=== PATIENT | male | born 1930 | race Caucasian/White ===

== ENCOUNTER 2021-01-19 16:16 | Emergency (ER) | payer MEDICAID ==
[~2021-01-19] VITALS: Ht 170.2 cm; Wt 102.5 kg
--- NOTE | 2021-01-19 16:56 | NUR ---
BIBFAMILY TO ER BED 7. AAOX4. NOT IN RESP DISTRESS. AMBULATORY. CAME IN FOR FEELING WEAK AND NOT WELL ACCORDING TO THE FAMILY SINCE SUNDAY. PT WAS UNABLE TO URINATED AND WAS NOTED WEAK. DAUGHTER ALSO REPORTS THAT THE PATIENT HAS BEEN DISORIENTED RECENTLY. NO NEURO DEFICIT NOTED. MD WAS AT THE BEDSIDE FOR EVAL. ORDERS RECEIVED, NOTED AND CARRIED OUT.
[2021-01-19] MEDS ORDERED: IV NS 0.9% 1,000 ML BAG IV ONE ×2 (17:00→18:00)
--- NOTE | 2021-01-19 17:05 | NUR ---
MOVE SHEET SUBMITTED AND CALLED FOR BED.
[2021-01-19 17:06] LABS: BASOPHILS # (AUTO) 0.1 K/uL (0.0-0.2); BASOPHILS % (AUTO) 0.8 % (0.0-2.0); EOSINOPHILS % (AUTO) 1.6 % (0.0-6.0); HEMATOCRIT 43 % (39-51); HEMOGLOBIN 14.1 g/dL (13.5-17.5); LYMPHOCYTES # (AUTO) 1.5 K/uL (0.8-4.8); MEAN CORPUSCULAR HGB CONC 33 g/dl (31.0-36.0); MEAN CORPUSCULAR VOLUME 101 fL (80-96); MONOCYTES # (AUTO) 0.8 K/uL (0.1-1.30); MONOCYTES % (AUTO) 9.9 % (2.0-12.0); NEUTROPHILS # (AUTO) 5.2 K/uL (1.8-8.9); NEUTROPHILS % (AUTO) 67.7 % (43.0-81.0); PLATELET COUNT (AUTO) 296 K/uL (150-450); RED BLOOD CELL COUNT(AUTO) 4.23 MIL/uL (4.5-6.0); WHITE BLOOD COUNT (AUTO) 7.6 K/uL (4.3-11.0)
[2021-01-19] MEDS ORDERED: LIDOCAINE 2% JEL UROJET 10 ML MM ONE ×2 (17:17→17:30)
--- NOTE | 2021-01-19 17:20 | NUR ---
COVID SWAB DONE AND SENT TO THE LAB
[2021-01-19 17:40] LABS: BILIRUBIN,URINE LARGE (NEGATIVE); COLOR,URINE DARK YELLOW (YELLOW); LEUKOCYTE ESTERASE ,URINE Negative (NEGATIVE); NITRITE, URINE Negative (NEGATIVE); PROTEIN,URINE 30 mg/dl (NEGATIVE); UGLUCOSE Negative (NEGATIVE)
[2021-01-19 17:51] LABS: BACTERIA,URINE Few /HPF (None Seen); SQUAMOUS EPITHELIAL CELL,UR 0-2 /HPF (None Seen); WBC,URINE 0-2 /HPF (0-3)
[2021-01-19] MEDS ORDERED: CEFEPIME 1 GM in IV D5W 50 ML IV ONE (18:00)
[2021-01-19 18:01] LABS: ALANINE AMINOTRANSFERASE 273 U/L (12-78); ALBUMIN 2.5 g/dL (3.4-5.0); ALKALINE PHOSPHATASE 422 U/L (46-116); ASPARTATE AMINOTRANSFERASE 197 U/L (15-37); BILIRUBIN,DIRECT 2.1 mg/dL (0.0-0.2); BILIRUBIN,TOTAL 2.6 mg/dL (0.2-1.0); CALCIUM, SERUM 8.1 mg/dL (8.5-10.1); CARBON DIOXIDE 25 mmol/L (21-32); CHLORIDE 102 mmol/L (98-107); CREATININE 1.4 mg/dL (0.6-1.3); GLUCOSE 248 mg/dL (74-106); POTASSIUM 3.6 mmol/L (3.5-5.1); SODIUM SERUM 138 mmol/L (136-145); TOTAL PROTEIN, SERUM 6.9 g/dL (6.4-8.2); UREA NITROGEN, BLOOD 27 mg/dL (7-18)
--- NOTE | 2021-01-19 18:21 | NUR ---
URINE OUTPUT 600 ML
--- NOTE | 2021-01-19 18:36 | NUR ---
[facility] CALLED [phone] FAX CLINICALS TO [phone]
--- NOTE | 2021-01-19 18:58 | NUR ---
CREA 1.4. PER DR ZAZUETA OK TO DO CT WITH CONTRAST
[2021-01-19] MEDS ORDERED: IOHEXOL-300 100 ML VIAL IV ONE (19:01)
[2021-01-19] MEDS ORDERED: IV NS 0.9% 250 ML IV ONE (19:01)
--- NOTE | 2021-01-19 19:06 | NUR ---
pt to [place] on [facility]
--- NOTE | 2021-01-19 19:23 | NUR ---
FAXED BUT WAITING FOR CT [phone]
--- NOTE | 2021-01-19 20:31 | NUR ---
CALLED [facility] [phone] THEY HAVE ALL DOCS AND ARE CALLING KAY ZAYAS.
--- NOTE | 2021-01-19 20:52 | NUR ---
shoshana [phone]
--- NOTE | 2021-01-19 21:18 | NUR ---
CALLED AFTER HOURS [phone] CONECTING TO KENDRA LOERA. [facility] WILL BE CONTACTING US CELI.
--- NOTE | 2021-01-19 21:28 | NUR ---
[facility] CALLED BACK AND WILL CALL BACK WITH
--- NOTE | 2021-01-19 21:29 | NUR ---
CALLED HANS ASHLEY.
--- NOTE | 2021-01-19 21:32 | NUR ---
DR. GONZALEZ SPEAKING WITH DR. ZAZUETA.
--- NOTE | 2021-01-19 22:00 | NUR ---
CALLED DR. MAXWELL, SPEAKING WITH DR. ZAZUETA.
--- NOTE | 2021-01-19 22:07 | NUR ---
CALLED [facility] [phone] PT ACCEPTED TO [facility] ROOM 1015-A PLEASE CALL [phone] FOR REPORT WILL CALL WITH ETA OF TRANSPORT
--- NOTE | 2021-01-19 22:16 | NUR ---
[facility] CALLED TRANSPORT IS WITH [facility] ETA IS [phone]
--- NOTE | 2021-01-19 22:17 | NUR ---
DR. ELLIS IS THE ACCEPTING DOCTOR.
--- NOTE | 2021-01-19 23:47 | NUR ---
REPORT GIVEN TO CLARISSA AL FOR SACHA
--- NOTE | 2021-01-19 23:49 | NUR ---
REPORT GIVEN TO CLARISSA AL FOR SACHA AT THE [facility]
--- NOTE | 2021-01-20 00:17 | NUR ---
CALLED [facility] WITH NEW ETA 15 MINS.
[2021-01-20 00:45] VITALS: BP 148/80
--- NOTE | 2021-01-20 00:45 | NUR ---
Patient Tranfers to outside Facility, Physician:DR ELLIS, REPORT GIVEN TO VIDA PACE, PT TRANSFERRED TO [facility]IA [facility] IN STABLE CONDITION, ACCOMPANIED BY VIDA PACE AND ANOTHER EMT PERSONNEL, DAUGHTER AND PRESENT.
== END 2021-01-20 00:45 | disposition short-term general hospital (02) ==
LOC: ER 16:28
DX: A41.9 Sepsis, unspecified organism (principal); K81.9 Cholecystitis, unspecified; I10 Essential (primary) hypertension; R94.31 Abnormal electrocardiogram [ECG] [EKG]; N13.30 Unspecified hydronephrosis; N28.1 Cyst of kidney, acquired; Z20.822 Contact with and (suspected) exposure to COVID-19
CPT/HCPCS: 36415; 51702; 71045; 74177; 76705; 80048; 80076; 81001; 83605 ×2; 84145; 84484; 85025; 85730; 87081; 87086; 87426; 93005; 96361; 96365; 99291; C9803; J0692; J3490; J7030 ×2; J7050; J7060; Q9967

== ENCOUNTER 2021-12-16 06:36 | Emergency (ER) | payer MEDICAID ==
[~2021-12-16] VITALS: Ht 167.6 cm; Wt 99.3 kg
--- NOTE | 2021-12-16 06:50 | NUR ---
PATIENT [id number] FROM HOME C/O LOW BS THIS AM. 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 PATIENT A/O X 3, RR EVEN AND UNLABORED, NO SOB NOTED. PATIENT TAKEN TO ER BED 09. PATIENT CONNECTED TO MONITORS.
--- NOTE | 2021-12-16 07:00 | NUR ---
LAB AT BEDSIDE FOR BLOOD DRAW
--- NOTE | 2021-12-16 07:08 | NUR ---
pt unable to provide urine at this time
[2021-12-16 07:11] LABS: BASOPHILS % (AUTO) 0.5 % (0.0-2.0); EOSINOPHILS % (AUTO) 0.1 % (0.0-6.0); HEMATOCRIT 44 % (39-51); HEMOGLOBIN 14.5 g/dL (13.5-17.5); LYMPHOCYTES # (AUTO) 1.4 K/uL (0.8-4.8); LYMPHOCYTES % (AUTO) 19.5 % (20.0-44.0); MEAN CORPUSCULAR HGB CONC 33 g/dl (31.0-36.0); MEAN CORPUSCULAR VOLUME 97 fL (80-96); MONOCYTES # (AUTO) 0.7 K/uL (0.1-1.30); MONOCYTES % (AUTO) 9.5 % (2.0-12.0); NEUTROPHILS # (AUTO) 5.2 K/uL (1.8-8.9); NEUTROPHILS % (AUTO) 70.4 % (43.0-81.0); PLATELET COUNT (AUTO) 250 K/uL (150-450); RED BLOOD CELL COUNT(AUTO) 4.52 MIL/uL (4.5-6.0); WHITE BLOOD COUNT (AUTO) 7.4 K/uL (4.3-11.0)
[2021-12-16] MEDS ORDERED: WARF-58 PO (07:12)
[2021-12-16] MEDS ORDERED: ROPI0.5T4 PO (07:12)
[2021-12-16] MEDS ORDERED: ASPI-1420 PO (07:12)
[2021-12-16] MEDS ORDERED: METO25TA4 PO (07:12)
[2021-12-16] MEDS ORDERED: GLYB1TAB41 PO (07:12)
[2021-12-16] MEDS ORDERED: BENA1TAB16 PO (07:12)
[2021-12-16] MEDS ORDERED: MELO-107 PO (07:12)
[2021-12-16] MEDS ORDERED: MONT10TA22 PO (07:12)
[2021-12-16] MEDS ORDERED: TAMS-12 PO (07:12)
[2021-12-16] MEDS ORDERED: ATOR20TA PO (07:12)
[2021-12-16] MEDS ORDERED: ISOS60TA72 PO (07:12)
[2021-12-16] MEDS ORDERED: FLUT16SP BNOSTRILS (07:12)
--- NOTE | 2021-12-16 07:15 | NUR ---
RECEVED PT FROM [facility] RESPIRATION SPONT AND EASY skin warm and dry to touch
[2021-12-16 07:27] LABS: ACETAMINOPHEN < 10 ug/ml (10-30); ALCOHOL, BLOOD < 3 mg/dL (0-0)
[2021-12-16 07:38] LABS: THYROID STIMULATING HORMONE 0.681 uIU/mL (0.358-3.74)
[2021-12-16 07:49] LABS: CARBON DIOXIDE 30 mmol/L (21-32); CHLORIDE 103 mmol/L (98-107); CREATININE 1.3 mg/dL (0.6-1.3); GLUCOSE 90 mg/dL (74-106); POTASSIUM 4.1 mmol/L (3.5-5.1); SODIUM SERUM 142 mmol/L (136-145); UREA NITROGEN, BLOOD 13 mg/dL (7-18)
--- NOTE | 2021-12-16 08:21 | NUR ---
CYNTHIA [phone] PT WILL BE GOING TO [facility] PLEASE FAX COVID WHEN AVAILABLE TO [phone]
--- NOTE | 2021-12-16 09:00 | NUR ---
coved swab done and send to lab
--- NOTE | 2021-12-16 09:00 | NUR ---
ll no n/v breackfest obtened eat w
--- NOTE | 2021-12-16 09:05 | NUR ---
covid antigen swab done and sent to the lab
--- NOTE | 2021-12-16 10:15 | NUR ---
transfer pt to room 8 dineses sob
--- NOTE | 2021-12-16 10:20 | NUR ---
FAXED CLINICALS TO [facility] [phone]
--- NOTE | 2021-12-16 11:37 | NUR ---
WATING FOR DISPO AND CLEARNESS FROM INSURENS
--- NOTE | 2021-12-16 11:38 | NUR ---
AUREA MARIE [phone] ROOM AT [facility] PT ACCEPTED UNDER DR. CHUNG.
[2021-12-16] MEDS ORDERED: DEXTROSE 50%-WATER 50 ML DISP.SYRIN IVP ONE (12:00)
[2021-12-16 12:52] LABS: BILIRUBIN,URINE NEGATIVE (NEGATIVE); COLOR,URINE YELLOW (YELLOW); LEUKOCYTE ESTERASE ,URINE NEGATIVE (NEGATIVE); NITRITE, URINE NEGATIVE (NEGATIVE); PH,URINE 5.5 (5.0-8.0); PROTEIN,URINE NEGATIVE (NEGATIVE); UGLUCOSE NEGATIVE (NEGATIVE); UROBILINOGEN,URINE 0.2 EU/dL (0.2)
--- NOTE | 2021-12-16 13:00 | NUR ---
DR. LIEN MCKEON spook with [facility] AT BED ABOUT PLAN OF CARE AND MONITERING BS Q1 HR FOR 2-3 HR
[2021-12-16 13:30] LABS: BACTERIA,URINE None seen /HPF (None Seen); SQUAMOUS EPITHELIAL CELL,UR None Seen /HPF (None Seen); WBC,URINE 0-2 /HPF (0-3)
--- NOTE | 2021-12-16 13:45 | NUR ---
LANCH OBTENED EAT WILL TOLORATED WILL NO N/V NOTED
--- NOTE | 2021-12-16 13:51 | NUR ---
COVID RESULT FAX TO [facility] AT [phone]
--- NOTE | 2021-12-16 14:45 | NUR ---
DR. EMMANUEL ASKING TO CONTENUE MONITER ACCU CHED EVERY 1HR
--- NOTE | 2021-12-16 16:46 | NUR ---
PT AND MAE RODRIGUEZ REFUSED TO BE ADMIT IN PT AND REQSTED TO SIGN AMA DR. LIEN HERNADEZ WITH MAE RODNEYFOR NOW DR. HOWELL AWARE
--- NOTE | 2021-12-16 17:43 | NUR ---
PT FEELING BEATER AND PT AND MAE ( VOCKY ) FULLY UNDERSTOOD SIGN AMA AND RISK AND TO CAME BACE IF ANY CINDITION BEARDEN
[2021-12-16 18:06] VITALS: BP 132/81
== END 2021-12-16 18:07 | disposition left against medical advice (07) ==
LOC: ER 06:41
DX: E11.649 Type 2 diabetes mellitus with hypoglycemia without coma (principal); G93.41 Metabolic encephalopathy; Z79.84 Long term (current) use of oral hypoglycemic drugs; U07.1 COVID-19; I45.10 Unspecified right bundle-branch block; R91.8 Other nonspecific abnormal finding of lung field; Z79.82 Long term (current) use of aspirin; Z79.899 Other long term (current) drug therapy; E11.9 Type 2 diabetes mellitus without complications; E78.5 Hyperlipidemia, unspecified; I10 Essential (primary) hypertension; J44.9 Chronic obstructive pulmonary disease, unspecified; Z79.01 Long term (current) use of anticoagulants
CPT/HCPCS: 36415; 71045; 80048; 80143; 80307; 80320; 81001; 82962 ×5; 84443; 85025; 85730; 87426; 93005; 99285; C9803; G0480